=== PATIENT | male | born 1990 | race Caucasian/White ===

== ENCOUNTER → 2018-02-08 11:57 | Outpatient (CLI) | payer OTHER, SELFPAY ==
[2018-02-08 16:01] LABS: Absolute Lymphocyte Count 1.35 X10^3/ul (0.83-4.51); Absolute Neutrophil Count 3.5 X10^3/uL (2.0-7.7); Basophil# 0.05 X10^3/uL; Basophil% 0.9 % (0-1); Eosinophil# 0.12 X10^3/uL; Eosinophils% 2.1 % (0-5); Hematocrit 46.9 % (40-54); Hemoglobin 15.8 g/dl (13.0-16.5); Lymphocyte # 1.35 X10^3/ul (4.0); Mean Corp Hgb Conc 33.7 g/gl (32-36); Mean Corpuscular Hgb 31.7 pg (27.0-32.0); Mean Platelet Vol. 11.8 fl (6.2-12.0); Monocyte# 0.55 X10^3/uL; Monocyte% 9.8 % (0-10); Neutrophil # 3.53 X10^3/uL (2.7-7.7); Neutrophil % 62.8 % (47-70); Platelet Count 216 K/mm3 (150-450); RBC Distribution Width CV 13.1 % (11.6-14.6); RBC Distribution Width SD 43.6 fl (35.1-43.9); Red Blood Count 4.99 M/mm3 (4.6-6.2); White Blood Count 5.6 K/mm3 (4.4-11.0)
[2018-02-08 16:03] LABS: POSITIVE COUNT NO; POSITIVE DIFFERENTIAL NO; POSITIVE MORPHOLOGY NO
[2018-02-08 16:21] LABS: T3 Total - Triiodothyronine 0.93 ng/mL (0.6-1.81)
[2018-02-08 16:24] LABS: ALB/GLOB Ratio 1.3 RATIO (0.9-2.4); AST(SGOT) 11 U/L (15-37); Alanine Aminotransfer ALT/SGPT 22 U/L (16-61); Albumin, Serum 4.4 g/dL (3.2-5.0); Alkaline Phosphatase 68 U/L (45-117); Anion Gap 8 (5-15); BUN 11 mg/dL (7-18); BUN/Creat Ratio 10.8 RATIO (10-20); Calcium,Total 9.3 mg/dL (8.5-10.1); Chloride 104 mmol/L (98-107); Cholesterol 174 mg/dL (200); Creatinine, Serum 1.02 mg/dL (0.70-1.30); EST Glomerular Filtration Rate 92 mL/min (>60); Est Glom Filt Rate - Afr Amer 111 mL/min (>60); Globulin 3.4 g/dL (2.2-4.2); Glucose 90 mg/dL (74-106); High Density Lipoprotein 42 mg/dL; Potassium 3.8 mmol/L (3.5-5.1); Protein, Total 7.8 g/dL (6.4-8.2); Sodium Level 141 mmol/L (136-145); T4 Free Direct 0.95 ng/dL (0.76-1.46); Thyroid Stim Hormone (TSH) 0.97 uIU/mL (0.358-3.74); Triglycerides 129 mg/dL; Very Low Density Lipoprotein 26 mg/dL (5-40)
== END ==
PROVIDERS: Family Provider Family Medicine; PCP Family Medicine; Visit Provider Family Medicine
DX: R00.9 Unspecified abnormalities of heart beat (principal); R03.0 Elevated blood-pressure reading, without diagnosis of hypertension; E78.5 Hyperlipidemia, unspecified; R53.83 Other fatigue
CPT/HCPCS: 36415; 80053; 80061; 84439; 84443; 84480; 85025

== ENCOUNTER → 2018-03-27 09:02 | Outpatient (CLI) | payer OTHER, SELFPAY ==
[2018-03-27 08:43] VITALS: BMI 31.2
--- NOTE | 2018-03-27 09:07 | RAD_ITS ---
STUDY: X-RAY - RIGHT ANKLE REASON FOR EXAM: Male, 27 years old. Pain following injury. TECHNIQUE: 3 view(s) of the ankle. COMPARISON: None. FINDINGS: Normal visualized distal tibia and fibula. Normal medial and lateral malleoli. Normal tibiotalar articulation and ankle mortise. Normal visualized talus and calcaneus. The visualized subtalar, talonavicular, calcaneocuboid and tarsal articulations are normal. The soft tissue structures are unremarkable. RAD/Ankle min 3 Views IMPRESSION: Normal x-ray examination of the ankle. Electronically Signed: Quinton Martinez MD at 9:58 EST Tel [phone], Service support ,
--- NOTE | 2018-03-27 09:07 | RAD_ITS ---
STUDY: X-RAY - RIGHT FOOT CLINICAL: Male, 27 years old. Pain following injury. TECHNIQUE: 3 view(s) of the foot. COMPARISON: None. FINDINGS: Normal talus, calcaneus, and tarsal bones. Normal visualized subtalar, talonavicular, calcaneocuboid, tarsal and tarsometatarsal articulations. Normal metatarsi. Normal metatarsophalangeal joint of the great toe. Normal tibial and fibular sesamoid bones. Normal interphalangeal joint of the great toe. Normal phalanges of the great toe. Normal second through fifth metatarsophalangeal joints. Normal interphalangeal joints and phalanges of the lesser toes. The soft tissue structures are unremarkable. RAD/Foot min 3 Views IMPRESSION: Normal x-ray examination of the foot. Electronically Signed: Quinton Martinez MD at 9:59 EST Tel [phone], Service support ,
== END ==
PROVIDERS: Family Provider Family Medicine; PCP Family Medicine; Referring Provider Physician Assistant; Visit Provider Physician Assistant
DX: S93.401A Sprain of unspecified ligament of right ankle, initial encounter (principal); S90.31XA Contusion of right foot, initial encounter; X58.XXXA Exposure to other specified factors, initial encounter; Y93.9 Activity, unspecified; Y92.9 Unspecified place or not applicable; Y99.9 Unspecified external cause status
CPT/HCPCS: 73610; 73630

== ENCOUNTER 2018-11-20 19:02 | Emergency (ER) | payer OTHER, SELFPAY ==
[2018-06-29 17:35] VITALS: BMI 31.2
[2018-11-20 19:03] VITALS: BP 165/105; PULSE 87; RESP 16; TEMP 36.4; BMI 30.7
--- NOTE | 2018-11-20 20:44 | ED.VIS.GEN ---
History of Present Illness Chief Complaint: Laceration Detail of Chief Complaint: Left hand laceration Informant: Patient Onset: Yesterday Current Severity: Mild Maximum Severity: Mild Narrative: Patient suffered a cut to his left hand last evening when opening a can of tuna. He put a dressing on at the time but after checking it today noted a significant cut. Last tetanus was 8 years ago. He is right-hand dominant. No paresthesias or weakness. Past Medical History - Allergies and Home Meds Allergies/Adverse Reactions: Allergies Iodinated Contrast- Oral and IV Dye [Iodinated Contrast Media - IV Dye] Allergy (Verified 11/20/18 20:19) Hives meloxicam [From Mobic] Adverse Reaction (Verified 11/20/18 20:19) Nausea/Vom/Diarrhea tramadol Adverse Reaction (Verified 11/20/18 20:19) Shortness of breath Primary Care Physician: Renetta Cedeño DO [Primary Care Provider] - Prior records reviewed: Yes Past Medical History: - - Reviewed Lives: With Family Smoking Status: Current some day smoker Review of Systems General: Denies: Chills, Fever Eyes: Denies: Visual changes - bilaterally ENT: Denies: Bilateral ear pain Cardiovascular: Denies: Chest pain Respiratory: Denies: Dyspnea Gastrointestinal: Denies: Abdominal pain Musculoskeletal: Reports: Arthralgias Neurological: Denies: Headache, Weakness, Parasthesia Hematologic: Denies: Easy bruising, Easy bleeding Allergy: Denies: Uticaria Physical Exam Vital Signs/Narrative: Vital Signs Temp Pulse Resp BP 11/20/18 19:03 97.6 F L 87 16 165/105 H Inital Vital Signs reviewed: Yes General: Well nourished, Well developed ENT: Moist mucous membranes Cardiovascular: Regular rate, Regular rhythm Respiratory: No distress, CTA bilaterally Abdomen: Soft, Nontender Extremities: - - Patient is a 2 cm laceration to the webspace between the thumb and index finger on the left hand. Wound is not well approximated and does open with any movement of his hand. No bleeding at this time. Normal musculoskeletal neuro exam. Skin: - - As above Neurological: Alert, Oriented x3, Normal Strength, Normal Sensation Psychological: Normal affect Diagnostic/Tx/Re-eval - Medical Decision Making Patient's laceration did occur greater than 12 hours ago. However, the position and depth of the cut does require suture. Every time he moves his index finger or thumb it opens. He will have significant healing time if we do not put sutures in. We discussed putting a few sutures and to hold the wound closed and covering him with antibiotics. He is in agreement with this plan. Procedures - Lacerations No standard instances Length: 0.79 in Depth: Sub Q Shape: Linear Prep: Nita-Clemor Laceration repair: Lidocaine, Local Number of Sutures/Prospect: 4 Suture Information: Vicryl, Simple, 5-0 ED Disposition - Plan for ED Patient: Disposition: Home or Assisted Living Diagnosis: Laceration of left hand Instructions: LACERATION, Hand Prescriptions: Smz/Tmp Ds [Bactrim Ds] 1 tablet PO BID #10 tablet Cephalexin [Keflex] 500 mg PO Q6 #20 capsule Referrals: Renetta Cedeño DO [Primary Care Provider] - 7 Days for suture removal
[2018-11-20] MEDS: Smz/Tmp Ds Tablet 1 TABLET PO (21:02)
[2018-11-20] MEDS: Cephalexin 250 MG Capsule 500 MG PO (21:02)
[2018-11-20 21:36] VITALS: RESP 16
== END 2018-11-20 21:36 | disposition home or self-care (01) ==
PROVIDERS: Emergency Provider Emergency Medicine; Family Provider Family Medicine; PCP Family Medicine
DX: S61.412A Laceration without foreign body of left hand, initial encounter (principal); W26.8XXA Contact with other sharp object(s), not elsewhere classified, initial encounter; Y93.9 Activity, unspecified; Y92.9 Unspecified place or not applicable; Y99.9 Unspecified external cause status; F17.200 Nicotine dependence, unspecified, uncomplicated; Z88.8 Allergy status to other drugs, medicaments and biological substances
CPT/HCPCS: 12001; 99284

== ENCOUNTER → 2019-01-17 16:43 | Outpatient (CLI) | payer OTHER, SELFPAY ==
--- NOTE | 2019-01-17 16:44 | RAD_ITS ---
STUDY: X-RAY - LEFT WRIST REASON FOR EXAM: Male, 28 years old. Trauma TECHNIQUE: 3 view(s) of the wrist were obtained. COMPARISON: None. FINDINGS: Normal visualized distal radius and ulna. Normal radiocarpal articulation. Normal distal radioulnar articulation. Normal carpal bones. Normal carpal articulations. Normal carpometacarpal articulation of the thumb. Normal second through fifth carpometacarpal articulations. Normal visualized metacarpal bones. The soft tissue structures are unremarkable. RAD/Wrist min 3 Views IMPRESSION: Normal x-ray examination of the wrist. Electronically Signed: Shukri Jalloh MD at 17:04 EDT , Service support ,
== END ==
PROVIDERS: Family Provider Family Medicine; PCP Family Medicine; Referring Provider Physician Assistant; Visit Provider Physician Assistant
DX: S69.92XA Unspecified injury of left wrist, hand and finger(s), initial encounter (principal); X58.XXXA Exposure to other specified factors, initial encounter; Y93.9 Activity, unspecified; Y92.9 Unspecified place or not applicable; Y99.9 Unspecified external cause status
CPT/HCPCS: 73110

== ENCOUNTER 2019-10-15 05:51 | Day surgery (SDC) | payer OTHER, SELFPAY ==
[2019-09-25 14:13] VITALS: BMI 30.7
[2019-10-15] VITALS (8 sets, daily range): BP systolic 133–179; BP diastolic 88–103; PULSE 71–91; RESP 16–18; TEMP 36.6–37.1; O2SAT 95–100; BMI 30.8
--- NOTE | 2019-10-15 06:00 | PCM.HP.BLA ---
Problem List (1) Subcutaneous mass of back Status: Acute History and Physical Date of Admission: 10/15/19 Intake Visit Reasons: LIPOMAS/ BACK AREA Chief Complaint: LEFT INDEX FINGER PAIN General Dentist/Owner Required: No Is patient in pain?: No Allergies Iodinated Contrast Media [Iodinated Contrast Media - IV Dye] Allergy (Verified 01/17/19 16:50) Hives meloxicam [From Mobic] Adverse Reaction (Verified 01/17/19 16:50) Nausea/Vom/Diarrhea tramadol Adverse Reaction (Verified 01/17/19 16:50) Shortness of breath [facility] Medical History Cellulitis of left index finger (Acute) Maxillary sinusitis, acute (Acute) Right ankle sprain (Acute) Contusion of right foot (Acute) Surgical History History of hip surgery (Acute) Family History Mother Asthma Social History (Updated 09/25/19 @ 14:[address] Marcell Sood MD) Smoking Status: Current some day smoker alcohol intake: never HPI HPI HPI: SARWAT PUGH, is a 28 M who presents to the office today for surgical consultation regarding subcutaneous masses right lower back and right lower back pain. 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 When he lies supine he has soreness in the right lower back area. He has had known suspected lipomas in this area for a period of time but they seem to be enlarging and becoming more symptomatic. The remainder of his health is good. HPI HPI HPI: SARWAT PUGH, is a 28 M who presents to the office today for ROS General General: No weight change, appetite, fatigue, colon cancer, breast cancer or weakness HEENT HEENT: No difficulty swallowing, eye injury, eye surgery, swollen glands or hoarseness Endo Endocrine: No thyroid disease, diabetes mellitus, thyroid cancer, Hair loss, heat intolerance or cold intolerance Skin Skin: No rash or changing moles Breast Breast: No left breast lump, right breast lump, nipple discharge, breast pain, abnormal mammogram, abnormal US or breast enlargement Musc Musculoskeletal: Yes back problems; no arthritis, rheumatoid arthritis, gout or joint pain Cardio Cardiovascular: Yes high blood pressure; no murmur, pacemaker, heart disease, atrial fibrillation, heart attack, heart stent, palpitations, shortness of breat with exertion or chest pain Psych Psychiatric: No depression, anxiety or hearing voices Resp Respiratory: No shortness of breath, No sleep apnea, No cough, No COPD, No asthma, No emphysema, No wheezing Gastro Gastrointestinal: No abdominal pain, No nausea or vomiting, No diarrhea, No constipation, No blood in stool, No acid reflux, No hemorrhoids, No ulcers, No gallbladder problem, No black,tarry stools Pranav Hematologic: No blood thinners, No blood disorders, No bleeding, No anemia, No blood clots Neuro Neurologic: No system reviewed and no additional complaints, except as docu, No as per HPI, No abnormal walking, No abnormal hearing, No abnormal movements, No abnormal speech, No behavioral changes, No burning sensations, No confusion, No seizure-like activity, No unsteadiness, No dizziness, No localized weakness, No frequent falls, No headache(s), No lack of coordination, No loss of vision, No memory loss, No numbness, No other visual disturbances, No radiating pain, No restless legs, No sensory deficit, No fainting, No tingling, No tremor(s), No weakness, No other Exam Const General: cooperative, healthy appearing, comfortable Nutritional Appearance: overweight Chest Breast Palpation: No nipple discharge Other: Right lower back has a more dominant subcutaneous mass measuring about 7 cm in diameter seems to be mobile. Inferior to this there appears to be a 2 cm diameter mass and then slightly inferior and lateral to that a additional 2 cm mass Resp Effort & Inspection: normal respiratory effort Auscultation: clear to auscultation bilaterally Cardio Rate: regular rate Rhythm: regular rhythm Heart Sounds: no murmurs GI Palpation: soft Auscultation: normal bowel sounds Neuro Cognition: normal cognition Extrem General: no calf tenderness Psych Affect: normal affect Assessment & Plan Problems 1. Subcutaneous mass of back R22.2 Plan 28-year-old gentleman. He has 1 sizable subcutaneous mass suspicious for lipoma right lower back which is tender on palpation and slightly mobile and then 2 more superficial areas. Due to the location and size I can correlate that these could compress and cause fatigue and soreness of the area particularly when lying on his back. I believe it is very reasonable to offer him a excision of these areas. I discussed with him the technique, benefit, risk, alternatives. I offered him consideration for an office-based procedure but could not guarantee that that would be able to be achieved all in one setting. After discussing that he has elected to pursue treatment in the operating room where hopefully all 3 lesions can be removed simultaneously. The largest one is easily palpable the other 2 slightly more vague. Very clear marking of the area would need to be performed on the day of surgery to assure best chance at excision. The patient is aware of benefit risk complications alternatives periods where that possibility of recurrence. He is aware of the potential difficulty with identifying each lesion. We will schedule and proceed at his discretion. I appreciate the opportunity of assisting with his surgical care. Cc: Dr. Renetta Sood M.D., F.A.C.S. Coding Level of Care Code Off vis,new,level 2 Diagnoses Subcutaneous mass of back R22.2 I have re-examined the patient. There are no clinical changes since date of exam. Procedure Criteria Procedure Type: Elective COVID Risk Discussion: The surgeon/proceduralist and patient have discussed in detail the risk of exposure to and/or potential harm posed by the COVID-19 virus with having a surgery/procedure at this time versus the risk of delaying the surgery/procedure. It is not possible to know either the risk of delaying the surgery or procedure or chance of getting an infection with perfect accuracy, but a joint decision was made between the patient and the surgeon/proceduralist to proceed at this time with the scheduled surgery/procedure as indicated on the consent form.
--- NOTE | 2019-10-15 06:01 | DCINST_ITS ---
Discharge Diet: Light diet - advance as tolerated - if you have questions about your diet instructions, please talk to you doctor. Discharge Activity: May Not Drive - for 3-5 days or while taking narcotic pain medicine. May shower in (days): 5 - Only after drain is out Lifting Restrictions: 10 pounds Call your doctor if your incision/area has: Continuous Slow Oozing, Sudden Increased Bleeding, Increased Pain/ Swelling, Increased Redness, Foul Smelling Discharge Call your doctor if you observe: Fever of 101 or Higher Suture Line Care: Avoid Pulling/Pushing, Avoid Pinching/Bending Additional Dressing/Incision Instructions:: Empty and measure and record drain output. Please contact my office early on Tuesday morning with a report of drainage that then help determine return to the office today. Keep the drain site and incision site clean and dry. You may leave the dressings intact till Tuesday. Allergies/Adverse Reactions: Allergies Iodinated Contrast Media [Iodinated Contrast Media - IV Dye] Allergy (Verified 10/15/19 06:24) Hives meloxicam [From Mobic] Adverse Reaction (Verified 10/15/19 06:24) Nausea/Vom/Diarrhea tramadol Adverse Reaction (Verified 10/15/19 06:24) Shortness of breath Medications to take at Discharge Hydrocodone Bitart/Apap 5-325 [[place] 5MG-325MG] 1 tab PO Q6H PRN PRN 2 Days #5 tab 10/15/19 The following prescriptions were given: Hydrocodone Bitart/Apap 5-325 [[place] 5MG-325MG] 1 tab PO Q6H PRN PRN 2 Days #5 tab PRN Reason: Pain Transmission Status: Received by [facility] Primary Care Physician: Renetta Cedeño DO [Primary Care Provider] - Test Results: Test results from this visit will be discussed in further detail at your follow- up appointment, if applicable. Please Follow Up With: Marcell Sood MD - [phone] When: Contact my office Tuesday for instructions
[2019-10-15] MEDS: Lactated Ringers 1,000 ML 100 ML IV ×2 (06:44→08:01)
--- NOTE | 2019-10-15 07:30 | LIP_PTH ---
PATIENT: SARWAT PUGH [place] [facility] [id number] AGE/SX: 28/M ROOM: RE10/15/[address]: Dr. Marcell Sood MD : [id number] BED: DIS: 10/15/2019 SPEC #: [id number] RECD: 10/15/19 09:07 STATUS: LEONIE CATIE #: [id number] MALA: 10/15/19 07:[address]: Marcell Sood DEPT: SURGICAL PATHOLOGY RECD BY: John Lang ENTERED: 10/15/19 10:06 SP TYPE: LIPOMA OTHR DR: Dr. Renetta Cedeño, DO Tissues: A - Soft tissues, NOS B - Soft tissues, NOS Procedures: Surgery Specimen Level III HEADER OPERATION: Excision lipoma x3 lower back PRE-OP DIAGNOSIS: Subcutaneous mass of back TISSUE SUBMITTED: A - Right lower back, superior to lower masses, B - Right lower back, two lipomas inferior to other lipoma MICROSCOPIC DIAGNOSIS A. Lesion of right lower back, superior, excision: Mature adipose tissue consistent with lipoma. B. Right inferior low back lesions, excision: Fragments of mature adipose tissue consistent with lipomas. AM:arun 10/16/19 MICROSCOPIC DESCRIPTION Slides are reviewed. GROSS DESCRIPTION A - Received in fixative is one container labeled with the patient's name and designated right lower back superior to lower masses. The specimen consists of multiple variable sized pieces of yellow adipose tissue that in aggregate measure 8 x 6 x 2.5 cm. Sections reveal yellow adipose cut surfaces without area of hemorrhage, necrosis or cystic degeneration. [place] sections are submitted in four cassettes. B - Received in fixative is one container labeled with the patient's name and designated right lower back, two lipomas inferior to other lipoma. The specimen consists of four variable sized pieces of yellow adipose tissue that in aggregate measure 7 x 7 x 3 cm. Sections reveal yellow adipose cut surfaces without area of hemorrhage, necrosis or cystic degeneration. [employer] sections are submitted in four cassettes. / SJ:arun 10/15/19 TC:1 CPT: 91188 x2
[2019-10-15] MEDS: Bupivacaine Mpf 0.5% 30 ML VIAL (08:37)
--- NOTE | 2019-10-15 08:44 | OP.PCM_ITS ---
Problem List (1) Subcutaneous mass of back Status: Acute Report of Operation Date of Procedure: 10/15/19 Pre-Operative Diagnosis: Symptomatic subcutaneous masses right lower back. Larger one more superior approximately 5 cm diameter and 2 adjacent inferior ones approximately 3 cm diameter each Post-Operative Diagnosis: Same Surgery/Procedure Performed:: Excision right lower back subcutaneous masses x3 with the inferior two included in a 6 x 5.5 cm conglomerate excision and the superior one excised in a 6.5 x 5.5 cm excision Description of Surgical Findings:: Timeout and informed consent was obtained. 28-year-old gentleman was taken to the operating he underwent general endotracheal intubation anesthesia was placed in prone on the table with shoulder rolls and knee padding. The right lower back was sterilely prepped and draped. I initially had planned 2 incisions one over the conglomerate of the 2 adjacent inferior subcutaneous masses and one over the larger superior mass. I made my incision transversely midway between the 2 inferior masses tedious sharp dissection performed down through the subtenons tissue fibrofatty lipomatous tissue was encountered the dissection then went deep down to fascia where the 2 more inferior subcutaneous mass was tediously dissected free. Unfortunately there was not good definition regarding the definitive edges of the lipoma. I did an aggressive resection and every attempt to remove all tissue that was suspicious. The inferior conglomerate of tissue measured 6 x 5.5 cm. Hemostasis was obtained with 2-0 chromic suture ligatures. On inspection then I felt that I could get to the more superior subcutaneous mass through the same incision. I lengthened my incision slightly and then dissected superiorly and encountered that mass which also seemed to extend laterally as did the 2 inferior ones. Again tedious dissection was performed down to the level of the fascia as I completely excised these deeply placed lesions found suggest lying upon the lumbar fascia. I completely excised all of the visible and palpable fibrofatty tissue that seem to be connected to the palpable mass. Again hemostasis was attained with interrupted 2-0 chromic suture ligatures. Electrocautery was utilized as well. The more superior specimen measured 6.5 x 5.5 cm. I placed a 10 round KARAN drain exiting laterally through stab incision to the deep space. I secured that to the skin with 3-0 nylon. I closed as much spaces I could then with 2-0 Vicryl. The drain had been shortened the length. The sub-dermal tissue was approximated running 3-0 Vicryl. Skin edges approximated with a running 3-0 nylon. The jorden- incisional areas anesthetized with 30 cc of 0.5% Marcaine mixed 50-50 with 1% lidocaine. 4 x 4's ABDs and bulky dry compression dressing was applied. Sponge and instrument and needle counts were reported to be surgeon to be correct. Blood loss was minimal. Specimens inferior subcutaneous masses excised as a single unit. Superior mass excised separately. Drains 10 round KARAN. Blood loss minimal Marcell Sood M.D., F.A.C.S. Type of Anesthesia:: General Anesthesiologist: Jose Cao
[2019-10-15] MEDS: HYDROcodone Bitartrate/Apap 5/325 Tablet PO (10:23)
== END 2019-10-15 11:08 | disposition home or self-care (01) ==
LOC: SDC 05:52 → AC 05:54
PROVIDERS: Anesthesiology; PCP Family Medicine; Referring Provider Surgery; Visit Provider Surgery
PROC: (CPT 11406; principal; 2019-10-15 07:15)
DX: D17.1 Benign lipomatous neoplasm of skin and subcutaneous tissue of trunk (principal); R52 Pain, unspecified; Z11.59 Encounter for screening for other viral diseases; I10 Essential (primary) hypertension; F17.200 Nicotine dependence, unspecified, uncomplicated
CPT/HCPCS: 00400; 11406 ×2; 12032; 64445; 87635; 88304; G2023; J7120; J2405; U0003

== ENCOUNTER 2020-05-07 17:23 | Emergency (ER) | payer OTHER, SELFPAY ==
[2020-03-05 15:33] VITALS: BMI 31.6
[2020-05-07 17:25] VITALS: BP 159/114; PULSE 136; RESP 18; TEMP 36.7; O2SAT 100; BMI 31.0
--- NOTE | 2020-05-07 17:40 | EKG12_ITS ---
Test Reason : NEURO Blood Pressure : / mmHG Vent. Rate : 125 BPM Atrial Rate : 125 BPM P-R Int : 134 ms QRS Dur : 094 ms QT Int : 318 ms P-R-T Axes : 057 024 054 degrees QTc Int : 458 ms Sinus tachycardia Cannot rule out Anterior infarct , age undetermined Abnormal ECG Confirmed by ALLEY WALKER, SEAN ([id number]), writer editor HANNA BOYCE ([id number]) on 05/13/2020 12:21:00 PM Referred By: ELPIDIO Confirmed By:SEAN HAGER MD
--- NOTE | 2020-05-07 17:57 | CT_ITS ---
STUDY: CTA HEAD AND NECK WITH CONTRAST REASON FOR EXAM: Male, 29 years old. MOCK X 5 DAYS, PUPILS DIFFERENT SIZES TODAY RADIATION DOSAGE (If Supplied By Facility): CTDIvol = ( 29.61 ) mGy, DLP = ( 1712.24 ) mGycm TECHNIQUE: CT angiography was performed with a multi-detector CT scanner. Data acquisition was obtained from the skull base through the vertex following intravenous administration of IV 100mL Isovue-370. MIP images were reconstructed from the axial data set. Post-processing of the angiographic images was performed, with multiplanar reformation and 3D reconstruction. Individualized dose optimization techniques were used for this CT. COMPARISON: No relevant priors. FINDINGS: Normal bilateral petrous carotid arteries. Normal right cavernous carotid artery with a normal supraclinoid bifurcation. Normal left cavernous carotid artery with a normal supraclinoid bifurcation. Normal right A1 segments of the anterior cerebral artery. Normal left A1 segments of the anterior cerebral artery. Normal intact anterior communicating artery (ACOM). Normal bilateral A2 segments of the anterior cerebral arteries. Normal right M1 and M2 segments of the middle cerebral arteries, with a normal M1 bifurcation. Normal left M1 and M2 segments of the middle cerebral arteries, with a normal M1 bifurcation. Normal right posterior communicating artery (PCOM). Normal left posterior communicating artery (PCOM). Normal bilateral vertebral arteries. Normal basilar artery with a normal basilar bifurcation. The visualized bilateral superior cerebellar (SCA) arteries are normal. Normal bilateral P1, P2 and visualized P3 segments of the posterior cerebral arteries. There is no demonstrated aneurysm of the [place]. There is no demonstrated abnormality of the visualized brain. AORTIC ARCH: Normal visualized aortic arch. Normal origins of the brachiocephalic, left common carotid, and left subclavian arteries. RIGHT CAROTID ARTERIES: Normal right common carotid artery (CCA). Normal right common carotid bulb. Normal origin of the right internal carotid (ICA) artery without a hemodynamically significant stenosis. Normal visualized cervical portion of the right internal carotid artery. Normal origin of the right external carotid artery (ECA). LEFT CAROTID ARTERIES: Normal left common carotid artery (CCA). Normal left common carotid bulb. Normal origin of the left internal carotid (ICA) artery without a hemodynamically significant stenosis. Normal visualized cervical portion of the left internal carotid artery. Normal origin of the left external carotid artery (ECA). VERTEBRAL ARTERIES: Normal bilateral vertebral arteries. CT/CTA Head AND Neck W/ Contrast IMPRESSION: Normal CTA Head and neck with contrast. Electronically Signed: Shukri Jalloh MD at 19:39 EST , Service support ,
--- NOTE | 2020-05-07 17:58 | ED.DCSUM_ITS ---
- ER Visit Summary Date of Service: 05/07/20 Chief Complaint: [Headache] History of Present Illness: The patient is a 29 M [ presents to the emergency department for headache that started 5 days ago. Patient states that it has been moderate anywhere from a 4 5 out of 10 and at times felt like maybe was in his sinuses in the back of his head. Patient's had some photophobia and loud sounds of bothered it. Headache has been intermittent. This morning he took Tylenol and it resolved and he currently does not have a headache. Approximately 4:40 PM patient looked in the mirror and noted that his left pupil was much smaller than his right pupil became concerned. His also noted that this was a discrepancy. Patient denies any falls or head injuries. He denies recent illness.] Physical Examination: [HEENT-PERRLA, EOMI. Cranial nerves II through XII grossly intact. TMs clear. Mucous membranes moist. No adenopathy. Cardiovascular-regular rate and rhythm without murmur or ectopy Lungs-clear to auscultation, chest wall stable without crepitus or subcu emphysema Abdomen-normoactive bowel sounds, soft, nontender, no rebound or rigidity, no peritoneal signs. Neuro tzle-sczxyq-gxzs and heel yang testing within normal limits, negative Romberg, negative pronator, fundi benign Extremities-intact ?4, normal range of motion, normal pulses, atraumatic] Test Results: [CTA of head and neck obtained were normal.] EKG obtained on arrival showed a sinus tachycardia with a ventricular rate of 125 with no acute segment changes noted. Emergency Department Course and Treatment: [] Treatment Plan: [Patient advised to discontinue use of Adderall which she has been abusing over the last 2 days. Patient to follow-up with his primary care physician in 3 to 5 days.] Disposition: [Discharged home in stable condition] Impression: [Cephalgia-resolved Tachycardia-secondary to Adderall use.] This note was generated with [employer] dictation software. It may contain incorrect words, spelling, and punctuation that were not noted in review of the chart prior to signing ED Disposition - Plan for ED Patient: Referrals: Renetta Cedeño DO [Primary Care Provider] -
[2020-05-07 17:59] VITALS: PULSE 125; RESP 18; O2SAT 99
[2020-05-07] MEDS: MethylPREDNISolone 125 MG/2 ML Vial IV (18:06)
[2020-05-07] MEDS: DiphenhydrAMINE 50 MG/ML Syringe 25 MG IV (18:06)
[2020-05-07 18:57] VITALS: PULSE 118; RESP 18; O2SAT 98
[2020-05-07 19:46] VITALS: BP 150/77; PULSE 116; RESP 26; O2SAT 97
--- NOTE | 2020-05-07 19:48 | ED.DEP ---
ED Disposition - Plan for ED Patient: Instructions: ED Headache Unspecified Referrals: Renetta Cedeño DO [Primary Care Provider] - 3-5 Days
== END 2020-05-07 19:58 | disposition home or self-care (01) ==
LOC: ED 18:40
PROVIDERS: Emergency Provider Emergency Medicine; PCP Family Medicine
DX: R51.9 Headache, unspecified (principal); R00.0 Tachycardia, unspecified; T43.625A Adverse effect of amphetamines, initial encounter; Y92.9 Unspecified place or not applicable
CPT/HCPCS: 70496; 70498; 93005; 96374; 96375; 99283; Q9967; A4216

== ENCOUNTER → 2020-07-10 13:38 | Outpatient (CLI) | payer OTHER, SELFPAY ==
[2020-07-10 15:35] LABS: Absolute Lymphocyte Count 1.24 X10^3/uL (0.83-4.51); Absolute Neutrophil Count 3.7 X10^3/uL (2.0-7.7); Basophil# 0.06 X10^3/uL; Eosinophil# 0.08 X10^3/uL; Eosinophils% 1.4 % (0-5); Hematocrit 46.7 % (40-54); Hemoglobin 15.5 g/dL (13.0-16.5); Lymphocyte # 1.24 X10^3/ul (4.0); Lymphocyte % 21.6 % (19-41); Mean Corp Hgb Conc 33.2 g/dL (32-36); Mean Corpuscular Hgb 30.2 pg (27.0-32.0); Mean Platelet Vol. 11.5 fl (6.2-12.0); Monocyte# 0.66 X10^3/uL; Monocyte% 11.5 % (0-10); NRBC Flagged by Analyzer 0 % (0-5); Neutrophil # 3.67 X10^3/uL (2.7-7.7); Neutrophil % 64.2 % (47-70); Platelet Count 273 K/mm3 (150-450); RBC Distribution Width CV 12.1 % (11.6-14.6); RBC Distribution Width SD 40.5 fl (35.1-43.9); Red Blood Count 5.13 M/mm3 (4.6-6.2); White Blood Count 5.7 K/mm3 (4.4-11.0)
[2020-07-10 15:37] LABS: Erythrocyte Sedimentation Rate 10 mm/hr (0-20)
[2020-07-10 15:41] LABS: ALB/GLOB Ratio 1.2 RATIO (0.9-2.4); AST(SGOT) 13 U/L (15-37); Alanine Aminotransfer ALT/SGPT 23 U/L (16-61); Albumin, Serum 4.1 g/dL (3.2-5.0); Alkaline Phosphatase 85 U/L (45-117); Anion Gap 7 (5-15); BUN 16 mg/dL (7-18); BUN/Creat Ratio 16.5 RATIO (10-20); CRP < 2.90 mg/L (0.0-3.0); Chloride 104 mmol/L (98-107); Creatinine, Serum 0.97 mg/dL (0.70-1.30); EST Glomerular Filtration Rate 96 mL/min (>60); Est Glom Filt Rate - Afr Amer 116 mL/min (>60); Globulin 3.4 g/dL (2.2-4.2); Glucose 111 mg/dL (74-106); Potassium 3.9 mmol/L (3.5-5.1); Protein, Total 7.5 g/dL (6.4-8.2); Sodium Level 138 mmol/L (136-145)
== END ==
PROVIDERS: PCP Family Medicine; Referring Provider Family Medicine; Visit Provider Family Medicine
DX: R51.9 Headache, unspecified (principal); H53.9 Unspecified visual disturbance; R06.00 Dyspnea, unspecified
CPT/HCPCS: 36415; 80053; 85025; 85652; 86140

== ENCOUNTER → 2020-07-19 07:57 | Outpatient (CLI) | payer OTHER, SELFPAY ==
--- NOTE | 2020-07-19 08:05 | MRI_ITS ---
STUDY: MRI BRAIN WITHOUT CONTRAST REASON FOR EXAM: Male, 29 years old. HEADACHES, VISION CHANGES TECHNIQUE: Standardized multiplanar fat and water weighted pulse sequences were obtained. COMPARISON: 05/07/2020 CT head FINDINGS: Normal size of the ventricles and extra-axial spaces for the patient''s age. Normal white matter tracts of the supratentorial brain. Normal bilateral basal ganglia. Normal thalami. There is no extra-axial fluid accumulation. Normal flow voids within the major intracranial circulation suggesting patency by spin echo criteria. Normal sella turcica, pituitary gland, infundibular stalk, optic chiasm and hypothalamus. Normal tectal plate and pineal gland. Normal midbrain, corrina and medulla. Normal cerebellum. Normal basal cisterns. Normal bilateral temporal bones. Normal bilateral internal auditory canals. No demonstrated orbital abnormality, within the constraints of a routine brain study. MRI/Brain without Contrast IMPRESSION: Unremarkable unenhanced MRI of the brain. Electronically Signed: Wisam Mcgowan MD at 8:26 EDT Tel , Service support ,
== END ==
PROVIDERS: PCP Family Medicine; Referring Provider Family Medicine; Visit Provider Family Medicine
DX: R51.9 Headache, unspecified (principal); H57.02 Anisocoria; H53.9 Unspecified visual disturbance
CPT/HCPCS: 70551

== ENCOUNTER 2021-07-20 14:57 | Outpatient (CLI) | payer OTHER, SELFPAY ==
--- NOTE | 2021-07-20 15:02 | CT_ITS ---
STUDY: CT ABDOMEN AND PELVIS WITH CONTRAST REASON FOR EXAM: Male, 30 years old. RIGHT LOWER QUADRANT ABDOMINAL PAIN R10.9 RADIATION DOSAGE (If Supplied By Facility): CTDIvol = ( 14.21 ) mGy, DLP = ( 1032.82 ) mGycm TECHNIQUE: Transaxial 3.75 mm images were obtained from the dome of the diaphragm to the symphysis pubis with oral contrast. Oral and amp; IV Readi-CAT and amp; 100mL Isovue-300 was administered. Sagittal and coronal images were reconstructed. Individualized dose optimization techniques were used for this CT. COMPARISON: None. FINDINGS: The visualized lung bases are unremarkable. The visualized portions of the heart are within normal limits. Normal liver. Normal gallbladder and extrahepatic biliary system. Normal spleen. Normal pancreas. Normal bilateral adrenal glands. Normal right kidney. Normal left kidney. Left retroaortic renal vein as a vascular variant. Oral contrast reaching the cecum. Normal visualized stomach. Normal small intestine. Normal colon. The appendix is visualized and appears normal. Normal abdominal aorta. Normal inferior vena cava. Normal retroperitoneum. Normal urinary bladder. Normal visualized prostate gland. Normal abdominal wall. Normal osseous structures. Multilevel endplate with Schmorl''s node. CT/Abdomen/Pelvis WITH Contrast IMPRESSION: There is no acute abdomen and pelvic pathology. Electronically Signed: Ragini Kc MD at 6:46 EDT Reading Location ID and State: , Service support ,
== END 2021-07-20 23:59 | disposition home or self-care (01) ==
LOC: CT 14:59
PROVIDERS: PCP Family Medicine; Visit Provider Family Medicine
DX: R10.9 Unspecified abdominal pain (principal)
CPT/HCPCS: 74177; Q9967

== ENCOUNTER 2021-09-03 02:48 | Emergency (ER) | payer OTHER, SELFPAY ==
[2021-09-03 02:51] VITALS: BP 157/104; PULSE 78; RESP 18; TEMP 36.6; O2SAT 100; BMI 30.3
--- NOTE | 2021-09-03 03:00 | RAD_ITS ---
STUDY: X-RAY CHEST REASON FOR EXAM: Male, 30 years old. chest pain TECHNIQUE: AP portable upright COMPARISON: None. FINDINGS: The lungs are clear and expanded. There is no demonstrated pleural abnormality. Normal size heart. Normal mediastinum and elsie. Normal visualized pulmonary arteries. Normal visualized aortic arch and descending thoracic aorta. Normal visualized thoracic spine. Normal visualized ribs, clavicles, and shoulders. There is no demonstrated abnormality of the visualized soft tissue structures of the upper abdomen. RAD/Chest 1 View (Portable) IMPRESSION: Normal x-ray examination of the chest. Electronically Signed: Taj Madison MD at 3:35 EDT ,
--- NOTE | 2021-09-03 03:00 | EKG12_ITS ---
Test Reason : CP Blood Pressure : / mmHG Vent. Rate : 072 BPM Atrial Rate : 072 BPM P-R Int : 164 ms QRS Dur : 102 ms QT Int : 386 ms P-R-T Axes : 037 029 044 degrees QTc Int : 422 ms Normal sinus rhythm Normal ECG Confirmed by JASON WALKER, SIGIFREDO ([id number]), photograph editor REGLA FIGUEROA ([id number]) on 09/04/2021 10:58:47 A M Referred By: Confirmed By:REYES GOMEZ MD
--- NOTE | 2021-09-03 03:00 | ED.VIS.CHEST ---
HPI History of Present Illness Chief Complaint: Chest Pain Informant: patient Narrative Narrative: 30-year-old male presenting to the emergency room for the evaluation of chest pain. Patient states the chest pain is sharp and near midsternal. He states he does feel some radiation to his back. He denies any shortness of breath nausea or vomiting. He notes that its been pretty constant. He fell asleep around 9 but woke up again with it. He is tried Tylenol Tums Pepcid. He denies any DVT PE risk factors or history. [facility] Medical History Anxiety Cellulitis of left index finger Contusion of right foot Hypertension Lab test negative for COVID-19 virus Maxillary sinusitis, acute Right ankle sprain Seroma after procedure Subcutaneous mass of back URI (upper respiratory infection) Home Medications propranolol 20 mg PO BID 09/03/21 [History Last Taken Unknown] Allergy/AdvReac Type Severity Reaction Status Date / Time Iodinated Contrast Media Allergy Hives Verified 09/03/21 02:55 [Iodinated Contrast Media - IV Dye] meloxicam [From Mobic] AdvReac Nausea/Vom/ Verified 09/03/21 02:55 Diarrhea tramadol AdvReac Shortness Verified 09/03/21 02:55 of breath Family History Mother Asthma Surgical History History of hip surgery s/p excision lipoma lower back (~10/15/19) Social History Smoking Status: Former smoker alcohol intake: never ROS ROS ED Constitutional Constitutional ED: Denies chills, fever(s) or weight loss Eyes Eyes: Denies change in vision or diplopia ENT ENT ED: Denies ear pain, rhinorrhea or sore throat Cardiovascular Cardiovascular: Reports chest pain; Denies orthopnea, palpitations or racing heartbeat Respiratory/Chest Respiratory/Chest: Denies cough, dyspnea or orthopnea Gastrointestinal Gastrointestinal: Denies abdominal pain, diarrhea, nausea or vomiting Genitourinary Genitourinary ED: Denies dysuria, hematuria or urinary frequency Musculoskeletal Musculoskeletal: Denies arthralgias or myalgias Integumentary Denies abscess or rash Neurologic Neurologic: Denies headache(s) or weakness Psychiatric Psychiatric: Denies anxiety, depression, suicidal ideation or suicidal thoughts Endocrine Endocrinology: Denies polydipsia, polyphagia or polyuria Allergic/Immunologic Allergic/Immunologic ED: Denies mouth swelling, tongue swelling or urticaria EXAM Physical Exam Const Vital Signs: 09/03/21 02:51 09/03/21 02:58 Temperature 97.9 F Temperature Source Temporal Pulse Rate 78 Respiratory Rate 18 Respiratory Effort Normal Non-Labored Blood Pressure 157/104 H Blood Pressure Mean 121 Pulse Ox 100 Oxygen Delivery Method Room Air Positive well nourished and well developed General Appearance ED: well developed HEENT Reports normocephalic, head/scalp atraumatic, TM's clear and moist mucous membranes normocephalic and atraumatic Tympanic Membrane ED: Yes TM's clear Eyes PERRL and EOMs intact bilaterally Neck no lymphadenopathy, supple and no JVD Chest Wall Chest Narrative: Patient reports tenderness to palpation along the costochondral border on the right. Resp normal respiratory effort and clear to auscultation bilaterally Cardio regular rate, regular rhythm and no murmurs GI normal to inspection, nondistended, normoactive bowel sounds and non-tender Palpation: soft Back/Spine no CVA tenderness and normal ROM Extremity normal to inspection General Extremety ED: Negative for edema General Extremity: Negative for edema Neuro oriented x3 and CN's II-XII intact bilaterally Sensorium / Orientation: alert Motor Exam: strength 5/5 throughout Psych mental status grossly normal Mood & Affect: Negative for depressed or tearful Skin no rashes or lesions noted and no wounds Heart Score History: Slightly/Non-Suspicious ECG: Normal Age: </= 45 years Risk Factors: 1 or 2 Risk Factors Troponin: </= Normal Limit Score: 1 MDM MDM MDM Narrative Medical decision making narrative: My interpretation of the chest x-ray is no acute process. CBC and BMP showed glucose of 124. Troponin high-sensitivity is 3. I gave him a dose of Toradol. I believe the patient can be safely discharged home. I do not think that this pain is ACS or PE. I do not think this is dissection. Given his chest is tender and he is describing sharp pain along the costochondral border I think is most likely costochondritis. Lab Data Attestation: I reviewed the patient's lab results. Labs: Laboratory Results - last 24 hr 09/03/21 09/03/21 02:57 02:57 WBC 5.0 RBC 4.69 Hgb 14.5 Hct 42.5 MCV 90.6 MCH 30.9 MCHC 34.1 RDW Std Deviation 40.7 RDW Coeff of Ananth 12.4 Plt Count 180 MPV 10.8 Immature Gran % (Auto) 0.200 Neut % (Auto) 43.8 L Lymph % (Auto) 33.9 Barron % (Auto) 19.3 H Eos % (Auto) 2.0 Baso % (Auto) 0.8 Absolute Neuts (auto) 2.2 Absolute Lymphs (auto) 1.70 Nucleated RBC % 0 Sodium 138 Potassium 3.5 Chloride 105 Carbon Dioxide 28.0 Anion Gap 5 BUN 14 Creatinine 1.01 Estim Creat Clear Calc 118.66 Est GFR (MDRD) Af Amer 110 Est GFR (MDRD) Non-Af 91 BUN/Creatinine Ratio 13.9 Glucose 124 H Calcium 8.8 Troponin I High Sens 3 EKG Initial EKG: Attestation: I personally reviewed and interpreted this EKG as follows: Comments: Normal sinus rhythm with a ventricular rate of 72 bpm Discharge Plan Triage Chief Complaint: Chest Pain ED Provider: Ramo Kaye Dx/Rx/DC Orders Clinical Impression: Acute chest pain, Acute costochondritis Instructions: Costochondritis Prescriptions: No Action propranolol 20 mg tablet 20 mg PO BID RF: 0 Primary Care Provider: Renetta Cedeño Referrals: Renetta Cedeño DO [Primary Care Provider] - As Needed Disposition Disposition: Home, Self Care
[2021-09-03 03:08] LABS: Absolute Neutrophil Count 2.2 X10^3/uL (2.0-7.7); Basophil# 0.04 X10^3/uL; Basophil% 0.8 % (0-1); Hematocrit 42.5 % (40-54); Hemoglobin 14.5 g/dL (13.0-16.5); Lymphocyte % 33.9 % (19-41); Mean Corp Hgb Conc 34.1 g/dL (32-36); Mean Corpuscular Hgb 30.9 pg (27.0-32.0); Mean Corpuscular Volume 90.6 fL (80-94); Mean Platelet Vol. 10.8 fl (6.2-12.0); Monocyte# 0.97 X10^3/uL; Monocyte% 19.3 % (0-10); NRBC Flagged by Analyzer 0 % (0-5); Neutrophil % 43.8 % (47-70); Platelet Count 180 K/mm3 (150-450); RBC Distribution Width CV 12.4 % (11.6-14.6); RBC Distribution Width SD 40.7 fl (35.1-43.9); Red Blood Count 4.69 M/mm3 (4.6-6.2)
[2021-09-03] MEDS: Ketorolac 30 MG/ML Syringe IV (03:08)
[2021-09-03 03:27] LABS: Anion Gap 5 (5-15); BUN 14 mg/dL (7-18); BUN/Creat Ratio 13.9 RATIO (10-20); Calcium,Total 8.8 mg/dL (8.5-10.1); Chloride 105 mmol/L (98-107); Creatinine, Serum 1.01 mg/dL (0.70-1.30); EST Glomerular Filtration Rate 91 mL/min (>60); Est Glom Filt Rate - Afr Amer 110 mL/min (>60); Estimated Creatinine Clearance 118.66 ml/min; Glucose 124 mg/dL (74-106); Potassium 3.5 mmol/L (3.5-5.1); Sodium Level 138 mmol/L (136-145); Troponin-I HS (w/2H Reflex) 3 pg/mL (3.0-78.0)
[2021-09-03 03:41] VITALS: BP 147/99; PULSE 75; RESP 16; O2SAT 99
[2021-09-03 05:06] LABS: Reflex Troponin-HS? (from REC) Y
== END 2021-09-03 03:42 | disposition home or self-care (01) ==
PROVIDERS: Emergency Provider Emergency Medicine; PCP Family Medicine; Visit Provider Emergency Medicine
DX: M94.0 Chondrocostal junction syndrome [Tietze] (principal); I10 Essential (primary) hypertension; Z87.891 Personal history of nicotine dependence
CPT/HCPCS: 71045; 80048; 84484; 85025; 93005; 96374; 99284; A4216

== ENCOUNTER 2023-04-01 08:22 | Emergency (ER) | payer OTHER, SELFPAY ==
[2023-04-01 08:23] VITALS: BP 177/123; PULSE 88; RESP 18; TEMP 35.6; O2SAT 98; BMI 34.7
[2023-04-01] MEDS: Smz/Tmp Ds Tablet 1 TABLET PO (09:08)
[2023-04-01] MEDS: Cephalexin 500 MG Capsule PO (09:08)
[2023-04-01] MEDS: Lidocaine 1% (20 ml mdv) 20 ML Vial INFILT (09:08)
--- NOTE | 2023-04-01 09:08 | EX.ED.UPPERE ---
HPI History of Present Illness Chief Complaint: Wound Informant: patient and spouse/S.O. Narrative Narrative: 32-year-old male presenting to the emergency room with chief complaint of index finger infection. Patient states that last he was seen at urgent care was started on doxycycline for infection on the base of the lateral left index finger. He states that he has had lipomas removed from his body. He was on doxycycline during deployment for approximately 1 year. Earlier this week he was seen at primary care and had an incision of the wound. Patient states that he is feeling some lymph node enlargement in his left axilla last night had sweats. He notes that there was some purulent drainage from the finger this morning. He notes increased localized swelling and pain. [facility] Medical History Anxiety Cellulitis of left index finger Contusion of right foot Hypertension Lab test negative for COVID-19 virus Maxillary sinusitis, acute Right ankle sprain Seroma after procedure Subcutaneous mass of back URI (upper respiratory infection) Home Medications propranolol 20 mg tablet 20 mg PO BID 09/03/21 [History Last Taken Unknown] doxycycline hyclate 100 mg capsule 100 mg PO BID 10 days #20 caps 03/24/23 [Rx Last Taken Unknown] cephalexin 500 mg capsule 500 mg PO Q6 #28 CAPSULES 04/01/23 [Rx Last Taken Unknown] oxycodone-acetaminophen 5 mg-325 mg tablet 1 tab PO Q6H PRN PRN Pain 3 days #12 TABLETS 04/01/23 [Rx Last Taken Unknown] sulfamethoxazole 800 mg-trimethoprim 160 mg tablet 1 tab PO BID #14 TABLETS 04/01/23 [Rx Last Taken Unknown] Allergy/AdvReac Type Severity Reaction Status Date / Time Iodinated Contrast Media Allergy Hives Verified 04/01/23 08:22 [Iodinated Contrast Media - IV Dye] meloxicam [From Mobic] AdvReac Nausea/Vom/ Verified 04/01/23 08:22 Diarrhea tramadol AdvReac Shortness Verified 04/01/23 08:22 of breath Family History Mother Asthma Surgical History History of hip surgery s/p excision lipoma lower back (~10/15/19) Social History Smoking Status: Former smoker alcohol intake: never ROS ROS ED Constitutional Constitutional ED: Reports sweats; Denies chills, fever(s) or weight loss Eyes Eyes: Denies change in vision or diplopia ENT ENT ED: Denies ear pain, rhinorrhea or sore throat Cardiovascular Cardiovascular: Denies chest pain, orthopnea, palpitations or racing heartbeat Respiratory/Chest Respiratory/Chest: Denies cough, dyspnea or orthopnea Gastrointestinal Gastrointestinal: Denies abdominal pain, diarrhea, nausea or vomiting Genitourinary Genitourinary ED: Denies dysuria, hematuria or urinary frequency Musculoskeletal Musculoskeletal: Reports myalgias and other Details: See history of present illness ; Denies arthralgias Integumentary Reports abscess; Denies rash Neurologic Neurologic: Denies headache(s) or weakness Psychiatric Psychiatric: Denies anxiety, depression, suicidal ideation or suicidal thoughts Endocrine Endocrinology: Denies polydipsia, polyphagia or polyuria Allergic/Immunologic Allergic/Immunologic ED: Denies mouth swelling, tongue swelling or urticaria EXAM Physical Exam Const Vital Signs: 04/01/23 08:23 Temperature 96.1 F L Temperature Source Temporal Pulse Rate 88 Respiratory Rate 18 Blood Pressure 177/123 H Blood Pressure Mean 141 Pulse Ox 98 Oxygen Delivery Method Room Air Positive well nourished and well developed General Appearance ED: well developed HEENT Reports normocephalic, head/scalp atraumatic and moist mucous membranes Eyes PERRL and EOMs intact bilaterally Neck no lymphadenopathy, supple and no JVD Resp normal respiratory effort and clear to auscultation bilaterally Cardio regular rate, regular rhythm and no murmurs GI normal to inspection, nondistended, normoactive bowel sounds and non-tender Palpation: soft Back/Spine no CVA tenderness and normal ROM Extremity Extremity Narrative: Base of the lateral left index finger still along the proximal phalanx demonstrates localized swelling and mild erythema. There is a linear incision that is closed. I do not appreciate any lymphangitic changes. There is some swelling locally over the dorsum of the left hand. No significant erythema. There is no evidence of a flexor or extensor tendinitis. General Extremety ED: Negative for edema General Extremity: Negative for edema Neuro oriented x3 and CN's II-XII intact bilaterally Sensorium / Orientation: alert Motor Exam: strength 5/5 throughout Psych mental status grossly normal Mood & Affect: Negative for depressed or tearful Skin no rashes or lesions noted and no wounds MDM MDM MDM Narrative Medical decision making narrative: Bedside ultrasound was performed by this physician. There is an obvious fluid collection in the subcutaneous tissue. My independent interpretation of the plain films of the left hand is soft tissue swelling. No obvious foreign body or bony destruction. Wound was locally anesthetized using 1% lidocaine. A cruciate incision was made. The pocket of purulence was entered with expression of pus. Wound culture was obtained. Wound was irrigated using 100 cc sterile saline. Quarter inch iodoform packing was placed. Patient will be started on Keflex and Bactrim. He is to discontinue the doxycycline (question resistance). Patient was advised to keep his orthopedic appointment on Tuesday. He was advised that should he worsen over the weekend that I would recommend him going to a center that has dedicated hand surgery. He notes understanding. History & Record Review Discussion w/independent historian: Patient and Significant other Discharge Plan Triage Chief Complaint: Wound ED Provider: Ramo Kaye Dx/Rx/DC Orders Clinical Impression: Finger pain, left, Cutaneous abscess of left hand Instructions: ED Abscess Incision And Drainage Prescriptions: New oxycodone-acetaminophen [oxycodone-acetaminophen] 5-325 mg tablet 1 tab PO Q6H PRN PRN (Reason: Pain) 3 Days Qty: 12 0RF cephalexin [cephalexin] 500 mg capsule 500 mg PO Q6 Qty: 28 0RF sulfamethoxazole-trimethoprim [sulfamethoxazole-trimethoprim] 800-160 mg tablet 1 tab PO BID Qty: 14 0RF No Action doxycycline hyclate 100 mg capsule 100 mg PO BID 10 Days Qty: 20 0RF propranolol 20 mg tablet 20 mg PO BID Patient Comments: TAKE 1 TABLET BY MOUTH 2cTIMES A DAY Primary Care Provider: Renetta Cedeño Referrals: Renetta Cedeño DO [Primary Care Provider] - Activity Restrictions/Additional Instructions: Warm soapy water soaks as directed Warm compresses as directed Follow-up with orthopedics as scheduled on Tuesday. Please return if any concerns or worsening as discussed Disposition Disposition: Home, Self Care Discharge Date/Time: 04/01/23 09:41
--- NOTE | 2023-04-01 09:15 | RAD_ITS ---
STUDY: X-RAY - LEFT HAND REASON FOR EXAM: Male, 32 years old. Infection base of index finger TECHNIQUE: 3 view(s) of the hand. COMPARISON: None. FINDINGS: Normal radiocarpal articulation. Normal distal radioulnar joint. Normal visualized carpal bones. Normal carpal articulations Normal carpometacarpal articulation of the thumb. Normal second through fifth carpometacarpal joints. Normal metacarpi. Normal metacarpophalangeal joint of the thumb. Normal interphalangeal joint of the thumb. Normal proximal and distal phalanges of the thumb. Normal metacarpophalangeal joints of the second through fifth fingers. Normal proximal and distal interphalangeal joints of the second through fifth fingers. Normal phalanges of the second through fifth fingers. Soft tissue swelling overlying the radial aspect of the proximal phalanx of the index finger. RAD/Hand Min 3 Views IMPRESSION: Soft tissue swelling overlying the radial aspect of the proximal phalanx of the index finger. No radiopaque foreign body is seen. Electronically Signed: Quinton Martinez MD at 9:40 EST ,
== END 2023-04-01 09:41 | disposition home or self-care (01) ==
LOC: ED 09:19
PROVIDERS: Emergency Provider Emergency Medicine; PCP Family Medicine; Visit Provider Emergency Medicine
DX: L02.512 Cutaneous abscess of left hand (principal); I10 Essential (primary) hypertension; M79.645 Pain in left finger(s); Z79.899 Other long term (current) drug therapy; Z87.891 Personal history of nicotine dependence
CPT/HCPCS: 26010; 10060; 73130; 87070; 87205; 99283

== ENCOUNTER → 2023-04-05 | Outpatient (CLI) | payer OTHER, SELFPAY ==
[2023-04-05 12:10] LABS: Absolute Neutrophil Count 3.5 X10^3/uL (2.0-7.7); Basophil# 0.08 X10^3/uL; Basophil% 1.2 % (0-1); Eosinophil# 0.12 X10^3/uL; Eosinophils% 1.8 % (0-5); Hematocrit 44.8 % (40-54); Hemoglobin 15.4 g/dL (13.0-16.5); Lymphocyte % 32.2 % (19-41); Mean Corp Hgb Conc 34.4 g/dL (32-36); Mean Corpuscular Hgb 31.2 pg (27.0-32.0); Mean Corpuscular Volume 90.9 fL (80-94); Mean Platelet Vol. 11.3 fl (6.2-12.0); Monocyte# 0.68 X10^3/uL; Monocyte% 10.4 % (0-10); NRBC Flagged by Analyzer 0 % (0-5); Neutrophil % 53.8 % (47-70); Platelet Count 260 K/mm3 (150-450); RBC Distribution Width CV 12.1 % (11.6-14.6); RBC Distribution Width SD 40.3 fl (35.1-43.9); Red Blood Count 4.93 M/mm3 (4.6-6.2); White Blood Count 6.5 K/mm3 (4.4-11.0)
[2023-04-05 12:35] LABS: CRP 6.14 mg/L (0.0-3.0)
== END | disposition home or self-care (01) ==
LOC: MTLAB 11:00
PROVIDERS: PCP Family Medicine; Referring Provider Orthopaedic Surgery Sports Medicine; Visit Provider Orthopaedic Surgery Sports Medicine
DX: L02.512 Cutaneous abscess of left hand (principal); M79.645 Pain in left finger(s)
CPT/HCPCS: 36415; 85025; 86140